=== PATIENT | female | born 1985 | race Two or more races ===

== ENCOUNTER → 2019-02-11 | Outpatient (CLI) | payer OTHER | END | disposition home or self-care (01) | LOC: PRENATAL 08:29 | DX: O99.89 Other specified diseases and conditions complicating pregnancy, childbirth and the puerperium (principal); O35.3XX0 Maternal care for (suspected) damage to fetus from viral disease in mother, not applicable or unspecified ==

== ENCOUNTER 2019-07-03 06:28 | Inpatient (IN) | payer OTHER ==
[~2019-07-03] VITALS: Ht 162.6 cm; Wt 67.1 kg
[2019-07-03] MEDS ORDERED: PRENATAL + DHA1 EAC1 PO (08:20)
[2019-07-03] MEDS ORDERED: SYNTHROID75 MCG PO (08:20)
[2019-07-03] MEDS ORDERED: IRON236 MG PO (08:21)
== END 2019-07-05 12:16 | disposition home or self-care (01) | DRG 807 ==
LOC: LDR 06:28 → OB/GYN 14:56
PROVIDERS: ADMIT Obstetrics & Gynecology
PROC: 10E0XZZ Delivery of Products of Conception, External Approach (ICD-10-PCS; principal; 2019-07-03)
PROC: 0KQM0ZZ Repair Perineum Muscle, Open Approach (ICD-10-PCS; 2019-07-03)
PROC: 3E033VJ Introduction of Other Hormone into Peripheral Vein, Percutaneous Approach (ICD-10-PCS; 2019-07-03)
PROC: 10907ZC Drainage of Amniotic Fluid, Therapeutic from Products of Conception, Via Natural or Artificial Opening (ICD-10-PCS; 2019-07-03)
PROC: 4A1HXCZ Monitoring of Products of Conception, Cardiac Rate, External Approach (ICD-10-PCS; 2019-07-03)
DX: O70.1 Second degree perineal laceration during delivery (principal); Z37.0 Single live birth; Z3A.39 39 weeks gestation of pregnancy